=== PATIENT | male | born 1985 | race Caucasian/White ===

== ENCOUNTER 2024-09-06 19:44 | Inpatient (IN) | payer BC, SELFPAY ==
[2024-09-06 15:05] VITALS: BP 190/109
[2024-09-06 15:27] LABS: % Basophils 0.4 % (0-2); % Eosinophils 2.8 % (0-6); % Immature Granulocytes 1.7 % (0-0.5); % Monocytes 11.6 % (1.7-9.3); % Neutrophils 62.5 % (42.2-75.2); Absolute Eosinophils 0.2 10^3/uL (0-0.7); Absolute Immature Granulocytes 0.1 10^3/uL (0-0.05); Absolute Lymphocytes 1.1 10^3/uL (1.2-3.4); Absolute Monocytes 0.6 10^3/uL (0.1-0.6); Absolute Neutrophils 3.4 10^3/uL (1.4-6.5); Hemoglobin 14.5 g/dL (13.0-18.0); Mean Corp Hgb Conc. 36.3 g/dL (33.0-37.0); Mean Corpuscular Hgb 34.4 pg (27.0-31.0); Mean Corpuscular Volume 94.8 fL (80.0-94.0); Mean Platelet Volume 10.2 fL (7.4-10.4); Nucleated Red Blood Cells % 0 % (-); Platelet Count 136 10^3/uL (130-400); Red Blood Cell Count 4.22 10^6/uL (4.70-6.10); Red Cell Dist. Width 12.1 % (11.5-14.5); White Blood Cell Count 5.4 10^3/uL (4.8-10.8)
[2024-09-06 15:42] LABS: ALT (SGPT) 143 U/L (0-50); AST (SGOT) 98 U/L (17-59); Albumin 5.1 g/dl (3.5-5.0); Alkaline Phosphatase 45 U/L (38-126); Blood Urea Nitrogen 16 mg/dl (9-20); Calcium 9.8 mg/dl (8.4-10.2); Carbon Dioxide 26 mmol/L (22-30); Chloride 103 mmol/L (98-107); Glucose 104 mg/dl (70-99); Sodium 139 mmol/L (135-145); Total Bilirubin 1.2 mg/dl (0.2-1.3); Total Protein 7.9 g/dl (6.3-8.2); eGFR > 60.00
[2024-09-06 17:03] VITALS: BMI 35.4
[2024-09-06 17:19] VITALS: BP 146/83
[2024-09-06] MEDS: UNASYN IV ×2 (17:58→23:44)
--- NOTE | 2024-09-06 19:05 | ED.SKININJ ---
HPI-Injury
General
Chief Complaint: Bite
Source: patient and spouse
Exam Limitations: none
Time Seen by Provider: 09/06/24 16:03
History of Present Illness-Injury
Initial Injury comments:
39-year-old male who presents for swelling of his right hand. Patient states he was bit by his dog yesterday whether playing around. Today noticed redness and swelling. Has pain in his third digit. Spouse states that she thought about bringing
him last night. Unknown last tetanus
Past History
Past History
ED Past Medical History: HTN and Other (Obstructive sleep apnea)
ED Past Surgical History: None
Social History
Tobacco: Other (Occasional cigar)
Alcohol: Daily (wine with dinner)
Drug: None
Personal:
Living: with family
Phy Exam
Physical Exam
Physical Exam:
CONSTITUTIONAL Vital signs reviewed, Patient alert and oriented to person, place and time. Well-appearing
HEAD atraumatic, normocephalic.
EYES eyelids normal to inspection, Extraocular muscles intact, Conjunctiva normal, Sclera normal.
NECK normal range of motion, Trachea midline, no jugular venous distention.
RESP no respiratory distress
BACK No obvious deformities
UPPER EXTREMITY noted laceration to the dorsum of the right hand as well as 1 in the webspace between the third and fourth digit. He does have a swollen third digit with pain with passive extension of that digit. There is redness that extends a
little more proximally to the MCP joint. He has diffuse swelling of the hand that is mild but more swelling to the third digit. He has normal distal cap refill.
LOWER EXTREMITY Gross range of motion normal, Gross motor strength normal
NEURO Speech normal, No focal motor deficits include, Jamar coma scale 15, Memory normal, Cranial Nerves intact to screening exam.
SKIN Skin warm, dry, and normal in color.
PSYCHIATRIC Patient oriented to person place and time, Normal affect.
Course
Orders/Labs/Results
Orders:
Orders
09/06/24 15:08
Hand, Right 3 View [CR Hand - Right Min 3 Views] Urgent
Comment:
Reason For Exam: dog bite
09/06/24 15:16
Complete Blood Count/With Diff Urgent
Comprehensive Metabolic Panel Urgent
09/06/24 17:34
Ampicillin/Sulbactam 3 G [Unasyn] 3 gm 0.9% Sodium Chloride 100 ml [Nss] 100 ml IV NOW
09/06/24 18:09
Tetanus/Diphth/Acelpertussis [Adacel] 0.5 ml IM .ONCE ONE
Abnormal Lab Results
09/06/24
15:16
RBC 4.22 L 10^6/uL
(4.70-6.10)
MCV 94.8 H fL
(80.0-94.0)
MCH 34.4 H pg
(27.0-31.0)
Abs Immat Gran (auto) 0.1 H 10^3/uL
(0-0.05)
Absolute Lymphs (auto) 1.1 L 10^3/uL
(1.2-3.4)
Immature Gran % 1.7 H %
(0-0.5)
Monocytes % 11.6 H %
(1.7-9.3)
Glucose 104 H mg/dl
(70-99)
AST 98 H U/L
(17-59)
ALT 143 H U/L
(0-50)
Albumin 5.1 H g/dl
(3.5-5.0)
09/06/24 15:16
09/06/24 15:16
Vital Signs
Initial and Last Documented VS:
Initial Vital Signs
Temp Pulse Resp BP Pulse Ox
97.7 F 115 20 190/109 97
09/06/24 15:05 09/06/24 15:05 09/06/24 15:05 09/06/24 15:05 09/06/24 15:05
Last Documented Vital Signs
Temp Pulse Resp BP Pulse Ox
98.9 F 111 16 146/83 97
09/06/24 17:19 09/06/24 17:19 09/06/24 17:19 09/06/24 17:19 09/06/24 17:19
MDM/Problems Addressed
MDM/Problems Addressed:
Dog bite, hand cellulitis, rule out flexor tenosynovitis
*Radiology
Radiology exam reviewed: all reviewed NAD by ED Provider
*Pulse Oximetry
Patient hypoxic: no
*Critical Care Note
Total Time (30-74mins, 75-104mins- exclusive of procedures): Not Applicable
Data Reviewed
Source: patient and spouse
Patient Management
Discussion with other providers: Hospitalist and Network Operations Technician (Case discussed with orthopedics. He will discuss with hand specialist)
Escalation/DeEscalation of care consider admission/obs:
White count normal and afebrile but does have bite leavitt with redness. IV antibiotics. Considered flexor tenosynovitis. Case discussed orthopedics
ED Attending Note
-
Portions of this chart may have been created with voice recognition software.� Occasional wrong word or��sound alike� substitutions may have occurred due to the inherent limitations of voice recognition software.
Discharge Plan
Departure
Patient Disposition: Admit
Date of Disposition: 09/06/24
Time of Disposition: 19:06
Admit to: Med/Surg
Presentation/result/management discussed w/ accepting MD/DO: Hospitalist
Discharge Problem:
Dog bite, Cellulitis of hand
Referrals:
Judd Walker MD [Family Provider] -
Interventions
Interventions:
*Risk Screen - Suicide Last Done: 09/06/24 17:03
*General Assessment Last Done: 09/06/24 17:03
*Neglect/Abuse Screening Last Done: 09/06/24 17:03
*ED COVID-19 Vaccine History Last Done: 09/06/24 17:03
ED-Skin Assessment Last Done: 09/06/24 17:03
Discharge Date and Time
Print Language: TURKMEN
[2024-09-06] MEDS: ADACEL 0.5 ML IM (19:33)
[2024-09-06 19:35] VITALS: BP 180/97
--- NOTE | 2024-09-06 19:36 | HPS.HSE ---
Family Physician
-
Family Physician: Judd Walker
Chief Complaint
-
infected dog bite wound
History of Present Illness
39M Lt handed man Obese HX HTN, ROBIN, daily Wine drinker, chr abn LFTs seen at ER ;
- Swollen Rt hand s/p dog bite while he is playing
- noticed redness and swelling, pain in his third digit.
- Spouse states that she thought about bringing him last night. Unknown last tetanus
Medical History
Past Medical History
Past Medical History: Reports HTN and Other (ETOH daily use ? disorder ? dependency ?)
Additional Past Medical History:
Obesity ,
Past Surgical History: Reports None
Social History
Tobacco: Non-smoker
Alcohol: Daily (wine )
Drug: None
Personal:
Family History
Family History: Not pertinent
Allergies / Home Medications
Allergies reflects when Allergies were last updated in [facility].
Home Medications with original date entered in [facility]
Allergy/Medication List:
Allergies
Allergy/AdvReac Type Severity Reaction Status Date / Time
No Known Allergies Allergy Verified 09/06/24 15:07
Home Medications
amlodipine 2.5 mg tablet 2.5 mg PO QPM 09/06/24
krill 1,000 mg-omega-3 170 mg-dha 50 mg-epa 80 [id number] capsule (krill oil) 1 cap PO QPM 09/06/24
losartan 100 mg tablet 100 mg PO QPM 09/06/24
naphazo HCl 0.025 %-hyprome 0.2 %-ps 80 0.5 %-Zn sulf 0.25 % eye drops (Clear Eyes Complete) 1 drp BOTH EYES DAILY 09/06/24
therapeutic multivitamin 1 tab PO QPM 09/06/24
Review of Systems
-
Constitutional: Reports No Symptoms
EENT: Reports No Symptoms
Respiratory: Reports No Symptoms
Cardiac: Reports No Symptoms
Abdomen/GI: Reports No Symptoms
: Reports No Symptoms
Musculoskeletal: Reports See HPI
Skin: Reports No Symptoms
Neurological: Reports No Symptoms
Endocrine: Reports No Symptoms
Hematologic/Lymphatic: Reports No Symptoms
Psych: Reports No Symptoms
Physical Exam
Vital Signs
Vital Signs
Temp Pulse Resp BP Pulse Ox
98.9 F 111 16 146/83 97
09/06/24 17:19 09/06/24 17:19 09/06/24 17:19 09/06/24 17:19 09/06/24 17:19
Physical Exam
General: Well Developed, Well Nourished and No Apparent Distress
HEENT: NormoCephalic, Moist mucous membranes and Atraumatic
Respiratory: Clear
Cardiac: S1/S2 and Regular Rhythm; No Murmur or Rub
GI: Soft, Non Tender, Non Distended and Normal Bowel Sounds; No Organomegaly
Rectal: Deferred by Provider
Musculoskeletal: Other (- laceration to the dorsum of the right hand as well as 1 in the webspace between the third and fourth digit. - swollen third digit with pain with passive extension of that digit. - redness that extends a little more
proximally to the MCP joint. - diffuse swelling of the hand that is mild but mo)
Skin: No Rash
Neuro: AO x 3 and Nonfocal/grossly intact
Laboratory Results
-
09/06/24 15:16
09/06/24 15:16
Laboratory Results
Total Bilirubin 1.2 mg/dl (0.2-1.3) 09/06/24 15:16
AST 98 U/L (17-59) H 09/06/24 15:16
ALT 143 U/L (0-50) H 09/06/24 15:16
Alkaline Phosphatase 45 U/L (38-126) 09/06/24 15:16
Data Reviewed
-
Diagnostic Radiology: Report Reviewed by me
Lab Data: Labs Reviewed by me
Impression/Plan
-
Laboratory Tests
09/06/24
15:16
WBC 5.4
Hgb 14.5
MCV 94.8 H
Creatinine 0.7
eGFR > 60.00
AST 98 H
ALT 143 H
Rt hand XR: No acute osseous abnormality.
ASSESSMENT & PLAN
Acute infected dog bite infection of Rt hand especially middle finger with pain with passive extension of that digit.
Concern for acute flexor tenosynovitis at Rt middle finger
Nl WCC & afebrile but does have bite leavitt with redness
of note; Lt handed man
- A shot of TD at ER
- IV Unasyn 3gm q6h
- PRN analgesia
- Hand ortho consult
Sinus tachycardia
HX ETOH use daily
Reports 1-5 measures of ETOH ( Vodka plus wine) daily 5 days per week
No prior HX acute ETOH WDS
- Observe VSS ( HR and BP )
- MSAS protocol (low risk)
HX elevated LFTs in the past of uncertain etiology; he follows up with PCP per patient
AST and ALT ratio is NOT REVERSED thus unlikely ETOH related
Diff origin: suspect fatty live rather than ETOH liver dz
- Trend LFTS
- avoid hepatotoxic agent including ETOH use
- GI OP evaluation
Benign HTN
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
ROBIN
- brought own CPAP HS
Obesity
- affect all aspects of life
DVT Px: contraindicated ambulatory
Full code
IP MS
[2024-09-06 21:37] VITALS: BP 168/96
[2024-09-06 22:13] VITALS: BMI 35.4
[2024-09-06] MEDS: THIAMINE INJECTION 200 MG IV (22:22)
[2024-09-06] MEDS: DILAUDID 0.25 MG IV (22:22)
[2024-09-06] MEDS: FLUSH (NSS) 2 FLUSH IV (23:45)
[2024-09-07] MEDS: NORVASC 2.5 MG PO ×2 (00:09→18:13)
[2024-09-07] MEDS: COZAAR 100 MG PO ×2 (00:15→18:13)
--- NOTE | 2024-09-07 01:34 | PTCARENOTE ---
Patient received from ED and was oriented to room and surroundings. Patient is Independent in room. Dilaudid per prn order for pain to right hand. IV Abx per order. BP elevated 176/104. Patient states he did not take his usual meds today.
Cozaar and Coreg per order. CPAP at HS. Patient sleeping quietly at this time.
[2024-09-07 03:36] VITALS: BP 160/98
[2024-09-07] MEDS: UNASYN IV ×3 (05:47→18:12)
[2024-09-07] MEDS: FLUSH (NSS) 2 FLUSH IV (05:48)
--- NOTE | 2024-09-07 05:50 | CON.ORTHO ---
Consultation
-
Date/Time Consultation Requested: 09/06/2024 @ 21:59
Date/Time Consultation Performed: 09/07/2024 @ 5:40 AM
Requesting Provider: Tanya Regalado PA-C
Performing Provider: Lazaro Woodson PA-C for Dr. Iván Mendoza
Reason for Consultation: Infected Dog Bite Wound Right Hand
Consultation - Orthopedics
History
HPI: The patient is a 39-year-old offv-fzza-xvltonyf male with a past medical history of HTN and ROBIN, admitted to [facility] yesterday evening with an acute infected dog bite wound of the right hand. The patient reports that he was playing
with his Great Dontrell on 09/05/2024 at around 7:30 PM. He was playing tug-of-war. His dog was attempting to adjust his bite when his teeth unfortunately slipped and struck his right hand. He sustained a laceration to the dorsum of the right hand
just proximal to the second metacarpal head. He also sustained a laceration in the webspace between the third and fourth digits. He reports that his dog is up to date on vaccinations. He started to experience worsening redness and swelling,
prompting evaluation in the ED yesterday evening. Treatment prior to the ED has consisted of ice therapy and OTC Ibuprofen without improvement in symptoms. He denies any fevers, chills or night sweats. Since initiation of IV antibiotics, patient
reports improvement in swelling of his small finger, ring finger, and index finger. He reports that the redness over the dorsum of his hand as well as palmar aspect of the middle finger in the vicinity of the A1 christiano has also improved. He
continues with discomfort localized to the right middle finger, described as a 'fullness.' He denies any paresthesias. WBC within normal limits. Currently afebrile. Tetanus was updated in the ED. IV Unasyn was started. Orthopedic surgery was
consulted regarding further management.
PAST MEDICAL HISTORY: HTN and ROBIN.
PAST SURGICAL HISTORY: None.
SOCIAL HISTORY: Denies tobacco use. Daily EtOH use (wine). Denies illicit drug use. . [id number].
FAMILY HISTORY: Non-contributory
REVIEW OF SYSTEMS: 12-point review of systems obtained and negative except those mentioned in the HPI.
Allergies / Home Medications
Allergy/AdvReac Type Severity Reaction Status Date / Time
No Known Allergies Allergy Verified 09/06/24 15:07
�Medication �Instructions �Recorded
amlodipine 2.5 mg tablet 2.5 mg PO QPM 09/06/24
krill 1,000 mg-omega-3 170 mg-dha 1 cap PO QPM 09/06/24
50 mg-epa 80 qw-hxjwrp-weaat
capsule (krill oil)
losartan 100 mg tablet 100 mg PO QPM 09/06/24
naphazo HCl 0.025 %-hyprome 0.2 1 drp BOTH EYES DAILY 09/06/24
%-ps 80 0.5 %-Zn sulf 0.25 % eye
drops (Clear Eyes Complete)
therapeutic multivitamin 1 tab PO QPM 09/06/24
Vital Signs / Lab Results
Temp Pulse Resp BP Pulse Ox
98.7 F 94 18 160/98 98
09/07/24 03:36 09/07/24 03:36 09/07/24 03:36 09/07/24 03:36 09/07/24 03:36
09/06/24 15:16
RADIOGRAPHIC FINDINGS:
CR Hand - RT Min 3 Views was obtained at [facility] on 09/06/2024 and was made available for my review today. Findings: Bones �there is no acute fracture, dislocation, or subluxation. Joints � the joint spaces and articulations are
unremarkable. Soft tissues � no radiopaque foreign body. Impression: No acute osseous abnormality.
PHYSICAL EXAM:
General: Well-developed, well-nourished male in no apparent distress.
HEENT: NCAT, sclerae anicteric, normal hearing.
Heart: No JVD.
Lungs: Normal work of breathing on room air.
MSK: Physical examination of the right upper extremity, with attention to the right hand, reveals diffuse generalized edema in comparison to the contralateral side. There is a dog bite laceration to the dorsum of the right hand just proximal to the
second metacarpal head. There is also a laceration in the webspace between the third and fourth digits. No active drainage. There is an erythematous hue overlying the dorsum of the right hand in the vicinity of the second metacarpal. There is
also an erythematous hue overlying the palmar aspect of the third digit in the vicinity of the A1 christiano. Edema of the small finger, ring finger, and index finger subjectively improved per patient. Erythema has also subjectively improved. There
is tenderness to palpation over the extensor and flexor surfaces of the middle finger. There is pain with passive and active range of motion of the middle finger. Unable to demonstrate a full composite fist due to edema/pain. Wrist range of
motion without pain. Sensation intact to light touch and capillary refill is less than 2 seconds.
Assessment / Plan
ASSESSMENT: 39-year-old htxr-pwcq-wucgfpbq male with an acute infected dog bite wound of right hand.
PLAN:
1) Continue with IV antibiotics per primary team. Currently on Unasyn.
2) Incorporation of warm dilute Hibiclens soaks TID.
3) Continue to monitor clinical picture closely. The patient endorses improvement with edema and erythema since admission. Pictures obtained will be shared with Dr. Neal. Will maintain NPO status for the time being.
4) Orthopedic surgery will continue to follow.
[2024-09-07 07:20] VITALS: BP 161/93
[2024-09-07] MEDS: FOLVITE 1 MG PO (08:37)
[2024-09-07] MEDS: THIAMINE INJECTION 200 MG IV ×2 (09:17→20:07)
[2024-09-07] MEDS: DILAUDID 0.25 MG IV ×2 (09:18→20:10)
[2024-09-07 10:52] LABS: ALT (SGPT) 109 U/L (0-50); AST (SGOT) 63 U/L (17-59); Alkaline Phosphatase 44 U/L (38-126); Blood Urea Nitrogen 14 mg/dl (9-20); Calcium 8.9 mg/dl (8.4-10.2); Carbon Dioxide 23 mmol/L (22-30); Chloride 99 mmol/L (98-107); Direct Bilirubin 0.6 mg/dl (0.0-0.4); Estimated Creatinine Clearance > 125 ml/min; Glucose 102 mg/dl (70-99); Magnesium 2.1 mg/dl (1.6-2.3); Potassium 3.9 mmol/L (3.5-5.1); Sodium 135 mmol/L (135-145); Total Protein 7.8 g/dl (6.3-8.2); eGFR > 60.00
[2024-09-07 10:54] LABS: GGTP 307 U/L (15-73)
[2024-09-07 11:44] VITALS: BP 148/97
--- NOTE | 2024-09-07 12:30 | CM ---
Patient seen bedside.
patient IA completed.
Patient lives with spouse in a 2 story home with 2 steps to enter.
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
patient was playing with dog and accidentally bitten.
Patient independent prior to admission without assistive devices.
PCP: Dr Walker
Pharmacy: [facility]
Plan: home with possible anbx needs, continue to follow.
--- NOTE | 2024-09-07 12:35 | W.PN.UPDATE ---
Update Note
Progress Note Update
Patient seen and evaluated by Dr. Neal. Will continue continue to monitor clinical picture very closely. Continue with IV abx and warm soaks at this time. OK for diet today. NPO pMN for possible surgery tomorrow depending upon clinical picture.
OR desk aware. Orthopedic surgery will continue to follow.
--- NOTE | 2024-09-07 13:52 | W.PN.HOSP.TC ---
Today's Communication/Plan
-
NPO after midnight. Possible surgery tomorrow.
Assessment / Plan
Assessment / Plan
39 man with Acute infected dog bite infection of Rt hand especially middle finger with pain with passive extension of that digit.
Concern for acute flexor tenosynovitis at Rt middle finger
1. Dog bite. May have surgery tomorrow. NPO after MN.
of note; Lt handed man
- A shot of TD at ER
- IV Unasyn 3gm q6h
- PRN analgesia
- Hand ortho consulted
2. Sinus tachycardia
HX ETOH use daily
Reports 1-5 measures of ETOH ( Vodka plus wine) daily 5 days per week
No prior HX acute ETOH WDS
- Observe VSS ( HR and BP )
- MSAS protocol (low risk)
- he has been told to stop drinking alcohol
3. HX elevated LFTs in the past of uncertain etiology; he follows up with PCP per patient
AST and ALT ratio is NOT REVERSED thus unlikely ETOH related
Diff origin: suspect fatty live rather than ETOH liver dz
- Trend LFTS
- avoid hepatotoxic agent including ETOH use
- GI OP evaluation
4. Benign HTN
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
5. ROBIN
- brought own CPAP HS
6. Obesity
- affect all aspects of life
- Had extensive conversation about weight loss options
DVT Px: contraindicated, ambulatory
Full code
IP MS
Anticipated Discharge: 24 - 48 hours
Subjective/Interval History
-
Date of Service: September 07, 2024
Hand symptoms unchanged.
Objective Data
-
Labs:
Laboratory Results
09/07/24
07:39
Sodium 135
Potassium 3.9
Chloride 99
Carbon Dioxide 23
BUN 14
Creatinine 0.6 L
Glucose 102 H
Calcium 8.9
Total Bilirubin 2.0 H
AST 63 H
ALT 109 H
Alkaline Phosphatase 44
Vital Signs:
Vital Signs
Temp Pulse Resp BP Pulse Ox
98.6 F 97 18 148/97 96
09/07/24 11:44 09/07/24 11:44 09/07/24 11:44 09/07/24 11:44 09/07/24 11:44
I&O
09/06/24 09/07/24 09/08/24
06:59 06:59 06:59
Intake Total 480 / 480
Balance 480 / 480
Review of Systems
-
History Source: Patient
All other systems: Reviewed and negative
Physical Exam
-
General: Well Developed, Well Nourished, No Apparent Distress, Comfortable and Obese
HEENT: Moist Mucous Membranes, Nose Appears Normal and Ears Appear Normal
Respiratory: Clear to Auscultation
Cardiac: Regular Rhythm and S1/S2
GI: Soft, Nontender and Nondistended
Musculoskeletal: No Clubbing, No Cyanosis, No Edema and Other (swollen right hand)
Skin: Warm and Dry
Neuro: Awake, Alert, Oriented and AO x 3
Psych: Calm
Data Reviewed
-
Labs: Labs Reviewed by me
[2024-09-07 15:39] VITALS: BP 144/93
[2024-09-07] MEDS: LOVENOX 40 MG SC (18:13)
[2024-09-07 19:42] VITALS: BP 158/69
[2024-09-07 23:45] VITALS: BP 147/89
[2024-09-08] VITALS (7 sets, daily range): BP systolic 134–154; BP diastolic 83–98
[2024-09-08] MEDS: UNASYN IV ×4 (00:06→17:36)
[2024-09-08] MEDS: FOLVITE 1 MG PO (08:40)
[2024-09-08 09:25] LABS: ALT (SGPT) 103 U/L (0-50); AST (SGOT) 58 U/L (17-59); Albumin 5.3 g/dl (3.5-5.0); Alkaline Phosphatase 48 U/L (38-126); Blood Urea Nitrogen 15 mg/dl (9-20); Calcium 9.4 mg/dl (8.4-10.2); Carbon Dioxide 24 mmol/L (22-30); Chloride 100 mmol/L (98-107); Estimated Creatinine Clearance > 125 ml/min; Glucose 105 mg/dl (70-99); Potassium 4.4 mmol/L (3.5-5.1); Sodium 136 mmol/L (135-145); Total Protein 8.4 g/dl (6.3-8.2); eGFR > 60.00
[2024-09-08 09:37] LABS: Hematocrit 42.8 % (39.0-52.0); Hemoglobin 15.3 g/dL (13.0-18.0); Mean Corp Hgb Conc. 35.7 g/dL (33.0-37.0); Mean Corpuscular Hgb 34.6 pg (27.0-31.0); Mean Corpuscular Volume 96.8 fL (80.0-94.0); Mean Platelet Volume 10.4 fL (7.4-10.4); Platelet Count 142 10^3/uL (130-400); Red Blood Cell Count 4.42 10^6/uL (4.70-6.10); Red Cell Dist. Width 12.3 % (11.5-14.5); White Blood Cell Count 5.3 10^3/uL (4.8-10.8)
--- NOTE | 2024-09-08 10:01 | W.PN.UPDATE ---
Update Note
Progress Note Update
Patient seen at bedside with present. Afeb. WBC WNL. Feeling much better today. IV was changed and drastic improvement noted over the dorsum of the hand. Erythema was outlined and looks much better. Improved ROM in flexion and extension of
the third finger. much less swelling. At this point no indication for the OR. Have given him a diet. Continue IV ABX, and treatment per the primary team. NPO order placed pMN tentatively posted to the OR schedule tomorrow just in case. However,
I do not see that surgical intervention will be necessary. Will hope for a discharge on p.o. or IV ABX per primary team. outpatient follow-up in 1 week
[2024-09-08] MEDS: THIAMINE INJECTION 200 MG IV ×2 (10:17→20:22)
[2024-09-08] MEDS: DILAUDID 0.25 MG IV (10:20)
--- NOTE | 2024-09-08 15:22 | W.PN.HOSP.TC ---
Today's Communication/Plan
-
likely discharged tomorrow if hand does ok overnight.
Assessment / Plan
Assessment / Plan
39 man with Acute infected dog bite infection of Rt hand especially middle finger with pain with passive extension of that digit.
Concern for acute flexor tenosynovitis at Rt middle finger
1. Dog bite. May have surgery tomorrow, though this is less likely given today's improvement. NPO after MN just in case.
If hand still doing well in am, DC with oral antibiotics.
of note; Lt handed man
- IV Unasyn 3gm q6h - to be switched to oral abx in am
- Hand ortho consulted
2. Sinus tachycardia - resolved
HX ETOH use daily
Reports 1-5 measures of ETOH ( Vodka plus wine) daily 5 days per week
No prior HX acute ETOH WDS
- Observe VSS ( HR and BP )
- MSAS protocol (low risk)
- he has been told to stop drinking alcohol
3. HX elevated LFTs in the past of uncertain etiology; he follows up with PCP per patient
Diff origin: suspect fatty liver +/- ETOH liver dz - this is now improving with abstinence from alcohol
- Trend LFTS as outpt
- avoid hepatotoxic agent including ETOH use
- GI OP evaluation
4. Benign HTN
- cont FOOT SPECIALIST amlodipine and losartan
5. ROBIN
- brought own CPAP HS
6. Obesity
- affect all aspects of life
- Had extensive conversation about weight loss options
DVT Px: contraindicated, ambulatory
Full code
IP MS
Anticipated Discharge: Within 24 hours
Subjective/Interval History
-
Date of Service: September 08, 2024
Hand is improved.
Objective Data
-
Labs:
Laboratory Results
09/08/24
08:20
WBC 5.3
Hgb 15.3
Hct 42.8
Plt Count 142
Sodium 136
Potassium 4.4
Chloride 100
Carbon Dioxide 24
BUN 15
Creatinine 0.6 L
Glucose 105 H
Calcium 9.4
Total Bilirubin 2.0 H
AST 58
ALT 103 H
Alkaline Phosphatase 48
Vital Signs:
Vital Signs
Temp Pulse Resp BP Pulse Ox
98.6 F 94 20 134/85 99
09/08/24 11:00 09/08/24 11:00 09/08/24 11:00 09/08/24 11:00 09/08/24 11:00
I&O
09/07/24 09/08/24 09/09/24
06:59 06:59 06:59
Intake Total 480 / 480 960 / 960 480 / 480
Balance 480 / 480 960 / 960 480 / 480
Review of Systems
-
History Source: Patient
All other systems: Reviewed and negative
Physical Exam
-
General: Well Developed, Well Nourished, No Apparent Distress, Comfortable and Obese
HEENT: Normocephalic, Atraumatic, Moist Mucous Membranes, Nose Appears Normal and Ears Appear Normal
Respiratory: Clear to Auscultation
Cardiac: Regular Rhythm and S1/S2
GI: Soft, Nontender and Nondistended
Musculoskeletal: No Clubbing, No Cyanosis and No Edema
Skin: Warm and Dry
Neuro: Awake, Alert, Oriented and AO x 3
Psych: Calm
Data Reviewed
-
Labs: Labs Reviewed by me
[2024-09-08] MEDS: LOVENOX 40 MG SC (17:30)
[2024-09-08] MEDS: NORVASC 2.5 MG PO (17:34)
[2024-09-08] MEDS: COZAAR 100 MG PO (17:34)
[2024-09-09] MEDS: UNASYN IV ×3 (00:38→11:47)
[2024-09-09 03:35] VITALS: BP 150/79
[2024-09-09 07:00] VITALS: BP 140/91
[2024-09-09] MEDS: FOLVITE 1 MG PO (08:13)
[2024-09-09] MEDS: THIAMINE INJECTION 200 MG IV (08:13)
--- NOTE | 2024-09-09 08:46 | W.PN.UPDATE ---
Update Note
Progress Note Update
Patient seen at bedside. Feeling even better than yesterday. Afeb. WBC WNL. Erythema continues to improve, essentially resolved over the dorsum of hand. Improved ROM in flexion and extension of the third finger. DNVI RUE. Much less swelling, but
understands this will persist for a bit. Restarted his diet. Continue IV ABX (Ampicillin), and treatment per the primary team. Maybe one more dose of IV before D/c home later today on po. Encouraged ROM of the wrist hand and fingers in combination
with ice and elevation. As swelling improves so will stiffness and ROM. Primary and Ortho follow-up in 1 week for clinical assessment. Ortho to sign off. D/c plan with follow-up info.
--- NOTE | 2024-09-09 08:54 | W.PN.HOSP.TC ---
Addendum entered and electronically signed by Leelee Live MD 09/09/24 14:18:
total DC time 38 min
Original Note:
Today's Communication/Plan
-
see A/P
ID CS
Assessment / Plan
Assessment / Plan
39 man with Acute infected dog bite infection of Rt hand especially middle finger with pain with passive extension of that digit.
Concern for acute flexor tenosynovitis at Rt middle finger
A/P:
# Dog bite of R hand middle finger
ortho on board, no surgery needed with current improvement
Ortho follow-up in 1 week for clinical assessment.
Continue IV ABX Ampicillin,
ID CS for ABx recc
# Sinus tachycardia - resolved
# HX ETOH use daily
# Reports 1-5 measures of ETOH (Vodka plus wine) daily 5 days per week
# No prior HX acute ETOH WDS
MSAS protocol (low risk)
Counselled on alcohol cessation
# HX elevated LFTs in the past of uncertain etiology; he follows up with PCP per patient
# Diff: suspect fatty liver +/- ETOH liver dz
LFT improving with abstinence from alcohol
Trend LFTS as outpt
avoid hepatotoxic agent including ETOH use
GI OP evaluation
# Benign HTN
cont INSULATION NOZZLEMAN amlodipine and losartan
# ROBIN
own CPAP HS
# Obesity
affect all aspects of life
Had extensive conversation about weight loss options
DVT Px: contraindicated, ambulatory
Full code
DW RN
Anticipated Discharge: Today
Subjective/Interval History
-
Date of Service: September 09, 2024
Objective Data
-
Vital Signs:
Vital Signs
Temp Pulse Resp BP Pulse Ox
36.9 C 96 18 150/79 98
09/09/24 03:35 09/09/24 03:35 09/09/24 03:35 09/09/24 03:35 09/09/24 03:35
I&O
09/08/24 09/09/24 09/10/24
06:59 06:59 06:59
Intake Total 960 / 960 1200 / 1200
Balance 960 / 960 1200 / 1200
Review of Systems
-
History Source: Patient
All other systems: Reviewed and negative
Musculoskeletal: Reports Edema (R third finger swelling and erythema improved)
Physical Exam
-
General: Well Developed, Well Nourished, No Apparent Distress, Comfortable and Obese
HEENT: Normocephalic, Atraumatic, Moist Mucous Membranes, Nose Appears Normal and Ears Appear Normal
Respiratory: Clear to Auscultation and Non Labored Respirations; Negative Accessory Resp Muscle Use
Cardiac: Regular Rhythm and S1/S2
GI: Soft and Nontender
Musculoskeletal: No Clubbing, No Cyanosis and Other (R third finger swelling and erythema improved)
Skin: Warm and Dry
Neuro: Awake, Alert, Oriented and AO x 3
Psych: Calm and Intact Judgement/Insight
Data Reviewed
-
Labs: Labs Reviewed by me
[2024-09-09 11:35] VITALS: BP 146/96
--- NOTE | 2024-09-09 12:08 | CON.ID ---
Consultation
-
Date/Time Consultation Requested: 09/09/2024 0857
Date/Time Consultation Performed: 09/09/2024 1208
Requesting Provider: Dr. Live
Performing Provider: Dr. Barton
Reason for Consultation: Antibiotic management
Chief Complaint / Past History
History of Present Illness
Keenan Joaquin is a 39-year-old man being evaluated at request of Dr. Live in regards to a right hand dog bite. History is obtained from chart review, along with patient interview. The patient has a significant past medical history only for
hypertension and reports that he was playing 'tug-of-war' with his great Dontrell on 09/05, when the dog went to adjust the rope, and bit the patient's right hand. The dog is fully vaccinated. The next day, there was swelling of the right third digit
and he presented to the emergency room for further evaluation. He was started on Unasyn, and hand surgery was consulted.
At the present time there has been marked improvement in hand swelling, tenderness and redness. He denies any fevers or chills. He notes no history of erythema extending up past his wrist or onto his forearm. No history of axillary adenopathy.
Past History
Additional Past Medical History:
HTN
ROBIN
Additional Past Surgical History:
Left hand surgery secondary to circular saw accident in his 20s
Allergy History:
No Known Allergies Allergy (Verified 09/06/24 15:07)
Medications Reviewed: Yes
Current Antibiotics:
Unasyn (day #4)
Social History
Tobacco: Other (Occasional cigar)
Alcohol: Daily (wine)
Drug: None
Personal:
Living: With Family
Employment: Employed
Family History
Family History: Not Pertinent
Review of Systems
Vital Signs
Temp Pulse Resp BP Pulse Ox
98.3 F 93 20 146/96 96
09/09/24 11:35 09/09/24 11:35 09/09/24 11:35 09/09/24 11:35 09/09/24 11:35
Physical Exam
Physical Exam
Constitutional: No Acute Distress, Comfortable and Non-toxic
Eyes: Sclera Anicteric
Cardiovascular: S1/S2; Negative S3/S4
Pulmonary: Non Labored
Gastrointestinal: Soft and Non Tender
Extremities: Edema (Minimal right hand swelling.) and Erythema (Little to no significant right hand erythema)
Musculoskeletal: Other (Good right hand range of motion)
Skin: Warm and Dry; Negative Rash or Jaundice
Neurological: Awake and Alert
Lab / Diagnostic Study Results
09/08/24 08:20
09/08/24 08:20
Abs Immat Gran (auto) 0.1 10^3/uL (0-0.05) H 09/06/24 15:16
Absolute Neuts (auto) 3.4 10^3/uL (1.4-6.5) 09/06/24 15:16
Absolute Lymphs (auto) 1.1 10^3/uL (1.2-3.4) L 09/06/24 15:16
Absolute Monos (auto) 0.6 10^3/uL (0.1-0.6) 09/06/24 15:16
Absolute Basos (auto) 0.0 10^3/uL (0-0.2) 09/06/24 15:16
Immature Gran % 1.7 % (0-0.5) H 09/06/24 15:16
Neutrophils % 62.5 % (42.2-75.2) 09/06/24 15:16
Lymphocytes % 21.0 % (20.5-51.1) 09/06/24 15:16
Monocytes % 11.6 % (1.7-9.3) H 09/06/24 15:16
Eosinophils % 2.8 % (0-6) 09/06/24 15:16
Basophils % 0.4 % (0-2) 09/06/24 15:16
Assessment / Plan
Dog bite
Right hand cellulitis; improved
Recommendations:
At present, patient with good range of motion of the hand and marked improvement in swelling and erythema since presentation to the ER.
Patient can likely be transition to oral Augmentin. Will treat for an additional 7 days.
I have counseled him that he should watch closely for recurrence of increasing pain, swelling or decreased range of motion, which may indicate IV antibiotics would be warranted. Should this happen, he should return to the ER to initiate IV
antibiotics.
Care Review
Plan reviewed with: Physician (Hospitalist)
--- NOTE | 2024-09-09 13:01 | CM ---
Patient discharged today to home.
in room with patient.
transition to oral abx.
no needs
PLAN: Home, no needs
to transprt
--- NOTE | 2024-09-09 13:53 | W.DCSUMMARY ---
Discharge Summary
Discharge Data
Date of Admission: 09/06/24
Date of Discharge: 09/09/24
-
Pending Results: No
Hospital Course
Principal Diagnosis:
Dog bite of Right middle finger with localized infection
Improved transaminitis
Chronic Diagnoses:�
Benign hypertension on amlodipine and losartan
Obstructive sleep apnea on CPAP
Obesity, BMI 35
Alcohol use daily
Suspect fatty liver
Consultations:�
Orthopedic
Infectious disease
Procedures:�
None
Clinical course:�
This is a 39 year old man with past medical history as stated above, who presented with localized right middle finger infection due to dog bite acute infected dog bite.
Problem 1:
Dog bite of Right middle finger with localized infection.
This does not require surgical intervention per orthopedic due to the rapid improvement of the swelling and erythema.
The patient received IV antibiotic ampicillin while in the hospital, and he was discharged with Augmentin for 7 more days per ID recommendation.
Problem 2:
Improved transaminitis.
Initial elevated LFT likely due to acute infection.
His ALT down trended to 100 and AST to 58, from 143 and 98, respectively.
He can check repeat LFT with the PCP outpatient.
As for the rest of his medical problems, they were stable during his hospital stay.
Discharge Plan
-
Patient Disposition: Home (Routine Discharge)
Discharge Diagnosis/Procedures: Dog bite wound to R hand middle finger with improved swelling and erythema
Condition: Good
Diet: As tolerated, Low Fat, Low Cholesterol and Low Sodium
Activity: As tolerated
Driving Restrictions: Not until seen by your Dr
Blood Work: LFT in 1 week with your PCP
Referrals:
Judd Walker MD [Family Provider] - in less than 1 week
Lazaro Woodson PA-C [Specified Professional Personl] - in one week
Additional Discharge Medication Instructions: Continue Augmentin for 7 more days
Prescriptions:
New
amoxicillin-pot clavulanate 875-125 mg Tablet
1 tab PO Q12 7 Days Qty: 14 0RF
Continued
therapeutic multivitamin Tablet
1 tab PO QPM
amlodipine 2.5 mg Tablet
2.5 mg PO QPM
losartan 100 mg Tablet
100 mg PO QPM
Clear Eyes Complete 0.025-0.2-0.5 % Drops
1 drp BOTH EYES DAILY
coslu-fb-1-vus-nbe-ushxuxl-ast [krill oil] 1,975-274-93-80 mg Capsule
1 cap PO QPM
Discharge Orders:
Discharge Patient (As Directed); Ordered 09/09/24
Ordered By: Leelee Live
Discharge Date and Time
Discharge Date/Time: 09/09/24 13:59
Print Language: BURUNDIAN
== END 2024-09-09 13:59 | disposition home or self-care (01) | DRG 603 ==
LOC: 4 WEST ACU 19:44
PROVIDERS: Internal Medicine; Physician Assistant Medical; ADMITTING PHYSICIAN Internal Medicine; ATTENDING PHYSICIAN Internal Medicine; CONSULT PHYSICIAN Internal Medicine Infectious Disease; CONSULT PHYSICIAN Student in an Organized Health Care Education/Training Program; EMERGENCY PHYSICIAN Emergency Medicine; FAMILY PHYSICIAN Family Medicine
PROC: 3E0234Z Introduction of Serum, Toxoid and Vaccine into Muscle, Percutaneous Approach (ICD-10-PCS; 2024-09-06)
PROC: 5A09357 Assistance with Respiratory Ventilation, Less than 24 Consecutive Hours, Continuous Positive Airway Pressure (ICD-10-PCS; 2024-09-06)
DX: L03.113 Cellulitis of right upper limb (principal); S61.252A Open bite of right middle finger without damage to nail, initial encounter; G47.33 Obstructive sleep apnea (adult) (pediatric); I10 Essential (primary) hypertension; F10.90 Alcohol use, unspecified, uncomplicated; K76.0 Fatty (change of) liver, not elsewhere classified; M65.841 Other synovitis and tenosynovitis, right hand; R74.01 Elevation of levels of liver transaminase levels; F17.290 Nicotine dependence, other tobacco product, uncomplicated; E66.9 Obesity, unspecified; W54.0XXA Bitten by dog, initial encounter; Y93.89 Activity, other specified; Y92.009 Unspecified place in unspecified non-institutional (private) residence as the place of occurrence of the external cause; Z68.35 Body mass index [BMI] 35.0-35.9, adult; Z23 Encounter for immunization
CPT/HCPCS: 73130; 80053; 82248; 82977; 83735; 85025; 85027; 90715; 96374; 99285

== ENCOUNTER 2024-10-17 22:04 | Emergency (ER) | payer BC, SELFPAY ==
[2024-10-17 22:06] VITALS: BP 194/116
[2024-10-17 22:40] VITALS: BP 154/109
[2024-10-17 22:54] LABS: ALT (SGPT) 123 U/L (0-50); AST (SGOT) 85 U/L (17-59); Albumin 5.3 g/dl (3.5-5.0); Alkaline Phosphatase 46 U/L (38-126); Blood Urea Nitrogen 17 mg/dl (9-20); Calcium 9.2 mg/dl (8.4-10.2); Carbon Dioxide 28 mmol/L (22-30); Chloride 98 mmol/L (98-107); Glucose 99 mg/dl (70-99); Potassium 4.3 mmol/L (3.5-5.1); Sodium 135 mmol/L (135-145); Total Bilirubin 1.7 mg/dl (0.2-1.3); Total Protein 8.1 g/dl (6.3-8.2); eGFR > 60.00
--- NOTE | 2024-10-17 22:57 | ED.GENMED ---
History of Present Illness
General
Chief Complaint: Anxiety
Source: patient
Exam Limitations: none
Time Seen by Provider: 10/17/24 22:46
Nursing documentation reviewed up to this point in time: agreed with
History of Present Illness
History of Present Illness:
Patient with history of hypertension, presents to ED secondary to sudden onset of left shoulder pain/discomfort, shortly after dinner while playing video game. Left shoulder pain radiated backwards onto his posterior shoulder. This symptoms lasted
only few minutes with spontaneous resolution. Denies loss of sensation or weakness. Denies any chest pain or shortness of breath. Denies nausea or vomiting. Denies direct trauma. Patient has had left shoulder pain in the past, with significant
exertional or range of motion activities. Patient is left-hand dominant. Patient has had injuries playing sports when he was younger. Denies family history of early heart disease. Denies recent travel or surgery. Denies leg pain or swelling.
Patient does smoke cigar intermittently. He does report drinking pretty regularly, although he has reduced amount of alcohol consumption recently.
Past History
Past History
ED Past Medical History: HTN and Other (Obstructive sleep apnea)
ED Past Surgical History: None
Social History
Tobacco: Other (Occasional cigar)
Alcohol: Daily (wine with dinner)
Drug: None
Personal:
Living: with family
Review of Systems
Review of Systems
Allergies reviewed?: Yes
All Other Systems: ROS reviewed and negative except as documented in HPI and ROS
Constitutional: Reports no symptoms
Respiratory: Reports no symptoms; Denies trouble breathing
Cardiac: Reports no symptoms; Denies chest pain
ABD/GI: Reports no symptoms
: Reports no symptoms
Musculoskeletal: Reports other (shoulder pain)
Skin: Reports no symptoms
Neurological: Reports no symptoms; Denies headache, weakness or numbness
Phy Exam
Physical Exam
Physical Exam:
Physical Exam
General: no apparent distress, not acutely ill. afebrile.
Head: nc/at. eomi
Neck: supple. normal range of motion.
Heart: s1/s2 regular rate and rhythm, no murmur. equal radial pulses.
Lungs: no acute respiratory distress. clear bilaterally. chest wall nontender to palpation
Abdomen: normal bowel sounds. not tender.
Neuro: alert and oriented x 3. no focal neurological deficits
Skin: no rash
Psychiatric: well kept. interactive and cooperative
Extremities: no edema. no calf tenderness.
Scores
Heart Score for Chest Pain Patients
STEMI patient?: No
History: Slightly or Non-Suspicious
ECG: Normal
Age: </= 45 years
Risk Factors: 1 or 2 Risk Factors
Troponin: </= Normal Limit
Heart Score for Chest Pain Patients: 1
Heart Score Risk: 2.5% MACE over next 6 weeks
Course
Orders/Labs/Results
Orders:
Orders
10/17/24 22:11
Electrocardiogram (*1) Urgent
Reason for Study: Shortness of Breath
10/17/24 22:12
EKG- Treatment ONCE
10/17/24 22:24
Complete Blood Count/With Diff Urgent
Comprehensive Metabolic Panel Urgent
Troponin I Urgent
Abnormal Lab Results
10/17/24
22:24
WBC 4.4 L 10^3/uL
(4.8-10.8)
RBC 4.10 L 10^6/uL
(4.70-6.10)
Hct 38.0 L %
(39.0-52.0)
MCH 35.4 H pg
(27.0-31.0)
MCHC 38.2 H g/dL
(33.0-37.0)
Immature Gran % 0.7 H %
(0-0.5)
Monocytes % 11.2 H %
(1.7-9.3)
Creatinine 0.6 L mg/dL
(0.7-1.3)
Total Bilirubin 1.7 H mg/dl
(0.2-1.3)
AST 85 H U/L
(17-59)
ALT 123 H U/L
(0-50)
Albumin 5.3 H g/dl
(3.5-5.0)
10/17/24 22:24
10/17/24 22:24
Vital Signs
Initial and Last Documented VS:
Initial Vital Signs
Temp Pulse Resp BP Pulse Ox
98.4 F 109 16 194/116 98
10/17/24 22:06 10/17/24 22:06 10/17/24 22:06 10/17/24 22:06 10/17/24 22:06
Last Documented Vital Signs
Temp Pulse Resp BP Pulse Ox
98.4 F 94 17 132/85 98
10/17/24 22:06 10/17/24 23:15 10/17/24 23:15 10/17/24 23:00 10/17/24 22:06
MDM/Problems Addressed
MDM/Problems Addressed:
Patient with an unremarkable workup in ED, including blood work and EKG.
History and exam inconsistent with ACS, but more likely related to underlying shoulder pathology, i.e. arthritis versus rotator cuff strain. As such, patient will be discharged home in stable condition, with recommendation to follow-up with his
primary care physician and/or ortho surgeon for an outpatient evaluation.
*Critical Care Note
Total Time (30-74mins, 75-104mins- exclusive of procedures): Not Applicable
ED Attending Note
-
Portions of this chart may have been created with voice recognition software.� Occasional wrong word or��sound alike� substitutions may have occurred due to the inherent limitations of voice recognition software.
Discharge Plan
Departure
Patient Disposition: Home (Routine Discharge)
Date of Disposition: 10/17/24
Time of Disposition: 23:20
Patient with high blood pressure during this ER visit?: Yes
Condition: Good
Discharge Problem:
Shoulder pain
Instructions: Shoulder pain - ED discharge instructions
Prescriptions:
No Action
therapeutic multivitamin Tablet
1 tab PO QPM
amlodipine 2.5 mg Tablet
2.5 mg PO QPM
losartan 100 mg Tablet
100 mg PO QPM
Clear Eyes Complete 0.025-0.2-0.5 % Drops
1 drp BOTH EYES DAILY
omcee-kd-4-zln-fam-ulxegdo-ast [krill oil] 1,813-295-94-80 mg Capsule
1 cap PO QPM
amoxicillin-pot clavulanate 875-125 mg Tablet
1 tab PO Q12 7 Days Qty: 14 0RF
Referrals:
Judd Walker MD [Family Provider] -
Activity Restrictions/Additional Instructions:
As discussed, please follow-up with your primary care physician with any further concerns, including potential outpatient consultation with an orthopedic surgeon.
Interventions
Interventions:
*Risk Screen - Suicide Last Done: 10/17/24 23:25
*General Assessment Last Done: 10/17/24 23:21
*Neglect/Abuse Screening Last Done: 10/17/24 23:25
ED- Fall Risk Assessment Last Done: 10/17/24 23:21
*ED COVID-19 Vaccine History Last Done: 10/17/24 23:21
*Nursing Disposition Last Done: 10/17/24 23:25
ED-Psychological Assessment Last Done: 10/17/24 23:21
Discharge Date and Time
Discharge Date/Time: 10/17/24 23:28
Print Language: BRITISH
[2024-10-17 23:00] VITALS: BP 132/85
[2024-10-17 23:04] LABS: Troponin I < 0.012 ng/ml
[2024-10-17 23:06] LABS: % Basophils 0.5 % (0-2); % Eosinophils 4.1 % (0-6); % Immature Granulocytes 0.7 % (0-0.5); % Lymphocytes 28.7 % (20.5-51.1); % Monocytes 11.2 % (1.7-9.3); % Neutrophils 54.8 % (42.2-75.2); Absolute Eosinophils 0.2 10^3/uL (0-0.7); Absolute Lymphocytes 1.3 10^3/uL (1.2-3.4); Absolute Monocytes 0.5 10^3/uL (0.1-0.6); Absolute Neutrophils 2.4 10^3/uL (1.4-6.5); Hemoglobin 14.5 g/dL (13.0-18.0); Mean Corp Hgb Conc. 38.2 g/dL (33.0-37.0); Mean Corpuscular Hgb 35.4 pg (27.0-31.0); Mean Corpuscular Volume 92.7 fL (80.0-94.0); Mean Platelet Volume 9.5 fL (7.4-10.4); Nucleated Red Blood Cells % 0 % (-); Platelet Count 143 10^3/uL (130-400); Red Cell Dist. Width 12.6 % (11.5-14.5); White Blood Cell Count 4.4 10^3/uL (4.8-10.8)
== END 2024-10-17 23:28 | disposition home or self-care (01) ==
LOC: EMR 22:04
PROVIDERS: EMERGENCY PHYSICIAN Emergency Medicine; FAMILY PHYSICIAN Family Medicine
DX: M25.512 Pain in left shoulder (principal); I10 Essential (primary) hypertension; G47.33 Obstructive sleep apnea (adult) (pediatric); F17.290 Nicotine dependence, other tobacco product, uncomplicated
CPT/HCPCS: 99284; 80053; 84484; 85025; 93005

== ENCOUNTER → 2025-06-13 08:15 | Outpatient (REF) | payer BC, SELFPAY | LOC: RCS 08:15 | PROVIDERS: ATTENDING PHYSICIAN Family Medicine | DX: M25.512 Pain in left shoulder (principal); G89.29 Other chronic pain; R07.9 Chest pain, unspecified; K30 Functional dyspepsia | CPT/HCPCS: 73030; 93017 ==

== ENCOUNTER 2025-07-22 16:14 | Emergency (ER) | payer BC, SELFPAY ==
[2025-07-22] VITALS (7 sets, daily range): BP systolic 132–180; BP diastolic 88–113; BMI 32.0
[2025-07-22 17:17] LABS: ALT (SGPT) 63 U/L (0-50); AST (SGOT) 40 U/L (17-59); Albumin 5.2 g/dl (3.5-5.0); Alkaline Phosphatase 48 U/L (38-126); Blood Urea Nitrogen 12 mg/dl (9-20); Calcium 9.7 mg/dl (8.4-10.2); Carbon Dioxide 26 mmol/L (22-30); Chloride 100 mmol/L (98-107); Glucose 100 mg/dl (70-99); Potassium 3.6 mmol/L (3.5-5.1); Sodium 135 mmol/L (135-145); Total Protein 8.5 g/dl (6.3-8.2); eGFR > 60.00
[2025-07-22 17:29] LABS: Troponin I 0.018 ng/ml
[2025-07-22] MEDS: NSS 1000 IV (18:01)
[2025-07-22] MEDS: XANAX 0.5 MG PO (18:22)
[2025-07-22 18:42] LABS: Troponin I 0.014 ng/ml
[2025-07-22 19:42] LABS: Hematocrit 41.3 % (39.0-52.0); Hemoglobin 15.4 g/dL (13.0-18.0); Mean Corp Hgb Conc. 38.5 g/dL (33.0-37.0); Mean Corpuscular Volume 88.9 fL (80.0-94.0); Nucleated Red Blood Cells % 0 % (-); Platelet Count 151 10^3/uL (130-400); Red Cell Dist. Width 12.0 % (11.5-14.5)
--- NOTE | 2025-07-22 20:23 | ED.GENMED ---
History of Present Illness
General
Chief Complaint: Heart Rate Problem
Source: patient and spouse
Exam Limitations: none
Time Seen by Provider: 07/22/25 17:31
Nursing documentation reviewed up to this point in time: agreed with
History of Present Illness
History of Present Illness:
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 Did drink some alcohol last night and does not drink daily. Does feel somewhat
anxious does have a history of anxiety. Denies any shortness of breath denies specific pain but does feel a fluttering occasionally asymptomatic since arrival to the ER. Denies any recent trauma surgery immobilization recent long flights no leg
swelling no history of blood clots.
Past History
Past History
ED Past Medical History: HTN and Other (Obstructive sleep apnea)
ED Past Surgical History: None
Social History
Tobacco: Other (Occasional cigar)
Alcohol: Daily (wine with dinner)
Drug: None
Personal:
Living: with family
Review of Systems
Review of Systems
Allergies reviewed?: Yes
All Other Systems: ROS reviewed and negative except as documented in HPI and ROS
Phy Exam
Physical Exam
Physical Exam:
GENERAL: Alert , in no apparent distress
EYE: pupils equal and reactive
NECK: Supple, no significant adenopathy.
ENT: o/p clr, mmm.
CARDIAC: Regular rate and rhythm .
LUNGS: Clear breath sounds bilaterally, no acute respiratory distress, no wheezes/rales/rhonchi
ABDOMEN: Soft, without focal tenderness, no r/g, no cvat
NEUROLOGICAL: Alert and oriented, no focal neuro deficits
SKIN: Warm and dry, skin intact.
MUSCULOSKELETAL: No edema, well perfused.
PSYCH: Normal and appropriate interaction.
Course
Orders/Labs/Results
Orders:
Orders
07/22/25 16:14
Electrocardiogram (*1) Urgent
Reason for Study: Palpitations
EKG- Treatment ONCE
07/22/25 16:38
CMP [Comprehensive Metabolic Panel] Urgent
Complete Blood Count/With Diff Urgent
Troponin I Urgent
07/22/25 18:00
0.9% Sodium Chloride 1000 ml [Nss] 1,000 ml IV BOLUS
07/22/25 18:02
Troponin I Urgent
07/22/25 18:14
Alprazolam [Xanax] 0.5 mg PO NOW STA
07/22/25 19:28
EKG [Electrocardiogram (*1)] Urgent
Reason for Study: Chest Pain
EKG- Treatment ONCE
Abnormal Lab Results
07/22/25
16:38
RBC 4.68 L 10^6/uL
(4.70-6.10)
MCH 34.2 H pg
(27.0-31.0)
MCHC 38.5 H g/dL
(33.0-37.0)
Absolute Lymphs (auto) 1.1 L 10^3/uL
(1.2-3.4)
Monocytes % 11.6 H %
(1.7-9.3)
Creatinine 0.6 L mg/dL
(0.7-1.3)
Glucose 100 H mg/dl
(70-99)
Total Bilirubin 1.4 H mg/dl
(0.2-1.3)
ALT 63 H U/L
(0-50)
Total Protein 8.5 H g/dl
(6.3-8.2)
Albumin 5.2 H g/dl
(3.5-5.0)
07/22/25 16:38
07/22/25 16:38
Vital Signs
Initial and Last Documented VS:
Initial Vital Signs
Temp Pulse Resp BP Pulse Ox
98.1 F 102 20 180/105 98
07/22/25 16:21 07/22/25 16:21 07/22/25 16:21 07/22/25 16:21 07/22/25 16:21
Last Documented Vital Signs
Temp Pulse Resp BP Pulse Ox
98.1 F 98 13 142/98 96
07/22/25 16:21 07/22/25 19:30 07/22/25 19:30 07/22/25 19:00 07/22/25 19:30
MDM/Problems Addressed
MDM/Problems Addressed:
40-year-old male presenting to the emergency department today with concerns of palpitations earlier today which prompted come to the ER. Denies any specific pain associated. No shortness of breath no fevers initially was hypertensive and mildly
tachycardic on arrival. EKG without emergent findings. Labs without specific acute abnormalities troponin negative repeat troponin was 2. Also negative heart rate improving after receiving fluids and anxiety medication heart rate improving as
well as blood pressure improving. Patient appears stable for discharge with no evidence of any acute cardiac abnormality at this time. Return precautions given. Advised for close outpatient follow-up.
*Pulse Oximetry
SaO2: 96
Oxygen Mode of Delivery: Room air
Patient hypoxic: no (96)
*Critical Care Note
Total Time (30-74mins, 75-104mins- exclusive of procedures): Not Applicable
ED Attending Note
-
Portions of this chart may have been created with voice recognition software.� Occasional wrong word or��sound alike� substitutions may have occurred due to the inherent limitations of voice recognition software.
Discharge Plan
Departure
Patient Disposition: Home (Routine Discharge)
Date of Disposition: 07/22/25
Time of Disposition: 20:23
Patient with high blood pressure during this ER visit?: No
Condition: Good
Covid-19: Not Applicable
Discharge Problem:
Palpitations
Instructions: Palpitations (DC)
Prescriptions:
No Action
therapeutic multivitamin Tablet
1 tab PO QPM
amlodipine 2.5 mg Tablet
2.5 mg PO QPM
losartan 100 mg Tablet
100 mg PO QPM
Clear Eyes Complete 0.025-0.2-0.5 % Drops
1 drp BOTH EYES DAILY
dwzhu-vk-3-umx-ddn-lffdvgq-ast [krill oil] 1,857-829-97-80 mg Capsule
1 cap PO QPM
amoxicillin-pot clavulanate 875-125 mg Tablet
1 tab PO Q12 7 Days Qty: 14 0RF
Referrals:
Judd Walker MD [Family Provider, Family Practice]
Activity Restrictions/Additional Instructions:
You came to the emergency department today with concerns of palpitations. Here your reassuring assessment. Please closely as an outpatient. Return for any worsening, new or concerning symptoms.
Interventions
Interventions:
*Risk Screen - Suicide Last Done: 07/22/25 16:21
*General Assessment Last Done: 07/22/25 17:37
*Neglect/Abuse Screening Last Done: 07/22/25 16:21
*ED- Fall Risk Assessment Last Done: 07/22/25 17:37
*ED COVID-19 Vaccine History Last Done: 07/22/25 17:37
*ED Influenza Vaccine History Last Done: 07/22/25 17:37
ED- Cardiac Assessment Last Done: 07/22/25 17:37
ED- Pulmonary Assessment Last Done: 07/22/25 17:37
Discharge Date and Time
Print Language: CAMEROONIAN
== END 2025-07-22 20:53 | disposition home or self-care (01) ==
LOC: EMR 16:14
PROVIDERS: Emergency Medicine; Physician Assistant; EMERGENCY PHYSICIAN Student in an Organized Health Care Education/Training Program; FAMILY PHYSICIAN Family Medicine
DX: R00.2 Palpitations (principal); I10 Essential (primary) hypertension; G47.33 Obstructive sleep apnea (adult) (pediatric); F41.9 Anxiety disorder, unspecified; F17.290 Nicotine dependence, other tobacco product, uncomplicated
CPT/HCPCS: 99284; 96360; 80053; 84484; 85025; 93005